=== PATIENT | male | born 1940 | race Two or more races ===

== ENCOUNTER 2016-07-27 16:48 | Emergency (ER) | payer MEDICARE, OTHER ==
[~2016-07-27] VITALS: Ht 172.7 cm; Wt 77.1 kg
--- NOTE | 2016-07-27 17:08 | Emergency Room Report ---
History of Present Illness General Chief Complaint: Syncope Source: Patient, Medical Record Present Illness HPI Patient presents with complaints of syncopal episode [facility] the [facility] Started feeling lightheaded And essentially sustained a syncopal episode patient does not recall the specifics Denies any chest pain or short of breath patient Is undergoing chemotherapy for lung cancer and resection Last chemotherapy was April patient had questionably some abnormal blood work recently however does not know the specifics of that He has been having general weakness denies any blood in the stool Allergies: Coded Allergies: No Known Allergies (Unverified , 07/27/16) Patient History Past Medical History: see triage record Pertinent Family History: none Reviewed Nursing Documentation: PMH: Agreed, PSxH: Agreed Nursing Documentation-PMH Past Medical History: No History, Except For Hx Cardiac Problems: Yes - Anemia, afib, hyperlipdemia, CAD, pleural effusion, urinary incontinance Hx Hypertension: Yes Hx Diabetes: Yes Hx Cancer: Yes - Lung Hx Gastrointestinal Problems: Yes - GERD, gall stone Hx Seizures: Yes Review of Systems All Other Systems: negative except mentioned in HPI Physical Exam Vital Signs Date Time Temp Pulse Resp B/P Pulse Ox O2 Delivery O2 Flow Rate FiO2 07/27/16 16:38 68 16 108/56 99 Sp02 EP Interpretation: reviewed, normal General Appearance: no apparent distress - However appears pale Head: normocephalic, atraumatic Eyes: bilateral eye EOMI, bilateral eye PERRL ENT: hearing grossly normal, normal pharynx, TMs + canals normal, uvula midline Neck: full range of motion, supple, no meningismus, no bony tend Respiratory: lungs clear, normal breath sounds, no rhonchi, no respiratory distress, no retraction, no accessory muscle use Cardiovascular #1: normal peripheral pulses, regular rate, rhythm, no edema, no gallop, no JVD, no murmur Gastrointestinal: normal bowel sounds, non tender, soft, no mass, no organomegaly, non-distended, no guarding, no hernia, no pulsatile mass, no rebound Genitourinary: no CVA tenderness Musculoskeletal: normal inspection Neurologic: oriented x3, responsive, yarn dumper III-XII nml as tested, motor strength/ tone normal, sensory intact Psychiatric: mood/affect normal Skin: normal color, no rash, warm/dry, palpation normal Lymphatic: normal inspection, no adenopathy Medical Decision Making Diagnostic Impression: Primary Impression: Syncope Additional Impression: Left against medical advice ER Course Patient is a fairly complex patient with multiple differential to consideration including but not limited to cardiac cardiopulmonary and vascular emergencies Patient also has a previous history of lung cancer along with resection At this time hemoglobin count is 8.0 Patient's creatinine is also elevated Is all concerning findings patient requires inpatient care and evaluation At this time however the family on multiple occasions reported to me that they do not want to stay in the hospital I spoke with them repeatedly regarding the importance of being admitted, this abnormality could lead to worsening symptoms possibly other syncopal episodes or other worsening pathology and possible Family is refusing any further admission The patient's heme oncologist did contact us at a later time after initial page And reports that he feels a hemoglobin is baseline however he also agrees with the admission unfortunately the patient has left AGAINST MEDICAL ADVICE Labs Test 07/27/16 17:20 07/27/16 18:35 White Blood Count 5.7 K/UL (4.8-10.8) Red Blood Count 3.29 M/UL (4.70-6.10) Hemoglobin 8.0 G/DL (14.2-18.0) Hematocrit 24.6 % (42.0-52.0) Mean Corpuscular Volume 75 FL (80-99) Mean Corpuscular Hemoglobin 24.3 PG (27.0-31.0) Mean Corpuscular Hemoglobin Concent 32.4 G/DL (32.0-36.0) Red Cell Distribution Width 16.1 % (11.6-14.8) Platelet Count 303 K/UL (150-450) Mean Platelet Volume 7.7 FL (6.5-10.1) Neutrophils (%) (Auto) 75.8 % (45.0-75.0) Lymphocytes (%) (Auto) 17.6 % (20.0-45.0) Monocytes (%) (Auto) 4.3 % (1.0-10.0) Eosinophils (%) (Auto) 1.3 % (0.0-3.0) Basophils (%) (Auto) 1.1 % (0.0-2.0) Sodium Level 135 mEQ/L (135-145) Potassium Level 5.3 mEQ/L (3.4-4.9) Chloride Level 95 mEQ/L (98-107) Carbon Dioxide Level 23 mEQ/L (20-30) Anion Gap 17 (5-15) Blood Urea Nitrogen 16 mg/dL (7-23) Creatinine 1.4 mg/dL (0.7-1.2) Estimat Glomerular Filtration Rate mL/min (>60) Glucose Level 175 mg/dL (74-106) Calcium Level 9.3 mg/dL (8.6-10.2) Total Bilirubin 0.2 mg/dL (0.0-1.2) Aspartate Amino Transf (AST/SGOT) 71 U/L (5-40) Alanine Aminotransferase (ALT/SGPT) 47 U/L (3-41) Alkaline Phosphatase 45 U/L (40-129) Total Creatine Kinase 51 U/L (38-174) Creatine Kinase MB < 1.5 ng/mL (< 6.7) Creatine Kinase MB Relative Index Troponin I < 0.30 ng/mL (<=0.30) Total Protein 6.7 g/dL (6.6-8.7) Albumin 3.7 g/dL (3.5-5.2) Globulin 3.0 g/dL Albumin/Globulin Ratio 1.2 (1.0-2.7) Prothrombin Time 11.4 SEC (9.30-11.50) Prothromb Time International Ratio 1.1 (0.9-1.1) Activated Partial Thromboplast Time 24 SEC (23-33) EKG Diagnostic Results Rate: normal Rhythm: NSR ST Segments: other - nonspecific ST and T-wave changes Rhythm Strip Diag. Results EP Interpretation: yes Rate: 77 Rhythm: NSR, no PVC's, no ectopy Chest X-Ray Diagnostic Results EP Interpretation: Yes Findings: no pneumothorax, other - Left lower lobe small effusion, bilateral atelectasis, no acute bony abnormalities Number of Views: 1 Last Vital Signs Date Time Temp Pulse Resp B/P Pulse Ox O2 Delivery O2 Flow Rate FiO2 07/27/16 16:38 68 16 108/56 99 Status: improved Disposition: AGAINST MEDICAL ADVICE Condition: Serious RANDY LOPEZ D.O. Jul 27, 2016 17:08
[2016-07-27 17:58] LABS: ALANINE AMINOTRANSFERASE 47 U/L (3-41); ALBUMIN/GLOBULIN RATIO 1.2 (1.0-2.7); ANION GAP 17 (5-15); ASPARTATE AMINO TRANSFERASE 71 U/L (5-40); CALCIUM 9.3 mg/dL (8.6-10.2); CARBON DIOXIDE 23 mEQ/L (20-30); CHLORIDE 95 mEQ/L (98-107); CREATININE 1.4 mg/dL (0.7-1.2); HEMOLYSIS 130; POTASSIUM 5.3 mEQ/L (3.4-4.9); SODIUM 135 mEQ/L (135-145); TOTAL PROTEIN 6.7 g/dL (6.6-8.7); TROPONIN I < 0.30 ng/mL (<=0.30)
[2016-07-27 18:08] LABS: CKMB < 1.5 ng/mL (< 6.7)
[2016-07-27 18:09] LABS: BASOPHILS % (AUTO) 1.1 % (0.0-2.0); EOSINOPHILS % (AUTO) 1.3 % (0.0-3.0); LYMPHOCYTES % (AUTO) 17.6 % (20.0-45.0); MEAN CORPUSCULAR HEMOGLOBIN 24.3 PG (27.0-31.0); MEAN CORPUSCULAR HGB CONC 32.4 G/DL (32.0-36.0); MEAN CORPUSCULAR VOLUME 75 FL (80-99); MEAN PLATELET VOLUME 7.7 FL (6.5-10.1); MONOCYTES % (AUTO) 4.3 % (1.0-10.0); NEUTROPHILS % (AUTO) 75.8 % (45.0-75.0); PLATELET COUNT 303 K/UL (150-450); RED BLOOD COUNT 3.29 M/UL (4.70-6.10); RED CELL DISTRIBUTION WIDTH 16.1 % (11.6-14.8); WHITE BLOOD COUNT 5.7 K/UL (4.8-10.8)
[2016-07-27 18:22] VITALS: BP 119/64
[2016-07-27 18:56] LABS: INR 1.1 (0.9-1.1); PROTHROMBIN TIME 11.4 SEC (9.30-11.50)
[2016-07-27] MEDS ORDERED: LORazepam Inj 2mg/ml 1ml IV ONE (19:15)
[2016-07-27 20:08] VITALS: BP_SYST 119; BP_SYST 135; BP_DIAS 64; BP_DIAS 68
--- NOTE | 2016-07-28 11:58 | Diagnostic Imaging Report ---
Indication: Chest pain Technique: One view of the chest Comparison: none Findings: There is a small left pleural effusion. There is bilateral basilar atelectatic change. The heart size is normal. Upper lung max are clear Impression: Small left pleural effusion Bilateral basilar atelectasis Clear lungs otherwise
--- NOTE | 2016-08-01 11:43 | Cardiology Report ---
APPROVED REPORT EKG Measurement Heart [id number] Sinus bradycardia with 1st degree AV block Left axis deviation Left bundle branch block Abnormal ECG
== END 2016-07-27 20:11 | disposition home or self-care (01) ==
LOC: EDBD 16:48 → EMR 17:55
DX: R55 Syncope and collapse (principal); Z53.21 Procedure and treatment not carried out due to patient leaving prior to being seen by health care provider; Z85.118 Personal history of other malignant neoplasm of bronchus and lung; R79.89 Other specified abnormal findings of blood chemistry; I10 Essential (primary) hypertension; E11.9 Type 2 diabetes mellitus without complications; K21.9 Gastro-esophageal reflux disease without esophagitis; E78.5 Hyperlipidemia, unspecified; I25.10 Atherosclerotic heart disease of native coronary artery without angina pectoris
CPT/HCPCS: 36415; 71010; 80053; 82550; 82553; 84484; 85025; 85610; 85730; 93005; 96360; 96374; 99284; J7040